=== PATIENT | female | born 1985 | race Two or more races ===

== ENCOUNTER 2016-12-26 08:19 | Emergency (ER) | payer MEDICAID ==
[~2016-12-26] VITALS: Ht 160 cm; Wt 145.1 kg
[~2016-12-26 08:19] MED LIST: ALBUTEROL SULF8.5 GM INH; AMOXICILLIN500 MG ORAL; AZITHROMYCIN250 MG ORAL; CLEOCIN150 MG PO; CYCLOBENZAPRINE10 MG ORAL; IBUPROFEN400 MG PO; IBUPROFEN600 MG ORAL; IBUPROFEN800 MG ORAL; MACROBID100 MG ORAL; NKM; OCUFLOX5 ML OP; PENICILLIN V P500 MG PO; PREDNISONE20 MG ORAL
[2016-12-26 09:01] VITALS: BP 138/95
[2016-12-26] MEDS ORDERED: Acetaminophen 500mg (ES) tab ORAL ONE (09:30)
--- NOTE | 2016-12-26 10:14 | Diagnostic Imaging Report ---
Indication: Chest pain Technique: One view of the chest Comparison: 05/22/2015 Findings: Heart size is upper limits of normal. Lungs and pleural spaces are clear. No significant change Impression: No acute process
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
[2016-12-26] MEDS ORDERED: IBUPROFEN600 MG ORAL (11:58)
[2016-12-26] MEDS ORDERED: ACETAMINOPHEN500 M3 ORAL (11:58)
[2016-12-26] MEDS ORDERED: CYCLOBENZAPRINE10 MG ORAL (11:58)
[2016-12-26 12:23] VITALS: BP 155/92
== END 2016-12-26 12:25 | disposition home or self-care (01) ==
LOC: EMR 08:55
DX: S13.4XXA Sprain of ligaments of cervical spine, initial encounter (principal); V89.2XXA Person injured in unspecified motor-vehicle accident, traffic, initial encounter; Y93.9 Activity, unspecified; Y99.9 Unspecified external cause status; R07.9 Chest pain, unspecified
CPT/HCPCS: 70450; 71010; 72125; 99284

== ENCOUNTER 2017-06-04 09:28 | Emergency (ER) | payer MEDICAID ==
[~2017-06-04] VITALS: Ht 160 cm; Wt 145.1 kg
[~2017-06-04 09:28] MED LIST changes: +ACETAMINOPHEN500 M3 ORAL
[2017-06-04 09:52] VITALS: BP 130/74
[2017-06-04 10:45] LABS: APPEARANCE,URINE SLIGHTLY CLOUDY; KETONES,URINE NEGATIVE (NEGATIVE); LEUKOCYTE ESTERASE ,URINE 3+ (NEGATIVE); NITRITE,URINE POSITIVE (NEGATIVE); PH,URINE 6 (4.5-8.0); PROTEIN,URINE NEGATIVE (NEGATIVE); UROBILINOGEN,URINE 1 MG/DL (0.0-1.0)
[2017-06-04] MEDS ORDERED: Bactrim DS (160mg/800mg) tab ORAL ONE (10:45)
[2017-06-04 10:58] LABS: BACTERIA,URINE MODERATE /HPF; RBC,URINE 0-2 /HPF (0 - 2); SQUAMOUS EPITHELIAL CELL,UR MODERATE /LPF (NONE/OCC)
--- NOTE | 2017-06-04 11:52 | Emergency Room Report ---
History of Present Illness General Chief Complaint: Skin Rash/Abscess Source: Patient Present Illness HPI Patient presents with R middle finger pain, swelling and drainage. No fevers. Has been worsening for 3 days. Tetanus UTD. Pain rated 3/10, worse when mashed , sharp and aching, not radiating. No numbness. 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 R handed. She is late for her period. No dysuria. No other somatic complaints. Asthma stable. No depression. Patient had abscess on her thigh in past needing I and D. Daughter here with UTI. Allergies: Coded Allergies: No Known Allergies (Unverified , 07/15/12) Patient History Past Medical History: see triage record Social History: Denies: smoking, drug use Social History Narrative with daughter - works at [employer] Reviewed Nursing Documentation: PMH: Agreed, PSxH: Agreed Nursing Documentation-PMH Past Medical History: No Stated History Review of Systems All Other Systems: negative except mentioned in HPI Physical Exam Vital Signs Date Time Temp Pulse Resp B/P (MAP) Pulse Ox O2 Delivery O2 Flow Rate FiO2 06/04/17 09:36 97.5 89 20 151/101 99 Room Air Sp02 EP Interpretation: reviewed, normal General Appearance: well appearing, no apparent distress, GCS 15 Head: normocephalic Eyes: bilateral eye normal inspection, bilateral eye PERRL ENT: moist mucus membranes Neck: supple Respiratory: lungs clear, normal breath sounds Cardiovascular #1: regular rate, rhythm Cardiovascular #2: 2+ radial (R) Gastrointestinal: normal inspection, normal bowel sounds, non tender, no mass, non-distended, overweight Musculoskeletal: back normal, gait/station normal, normal range of motion, swelling - R middle finger - radial side Neurologic: alert, oriented x3 Psychiatric: mood/affect normal Skin: warm/dry, other - paronychium R middle finger with erythema and swelling Procedures Incision and Drainage Incision and Drainage : Consent: Verbal Blade Size: 11 I & D Procedure: betadine prep, sterile drapes applied, gauze wick placed Wound Location: other - R middle finger Wound's Depth, Shape: superficial Wound Explored: contaminated - pus expressed after incision Irrigated w/ Saline (ccs): 20 Anesthesia: 1% Lidocaine - 1/2 digital block Volume Anesthetic (ccs): 3 Splint Applied?: No - tube gauze Patient Tolerated: Well Complications: None Medical Decision Making Diagnostic Impression: Primary Impression: Paronychia Additional Impression: UTI (urinary tract infection) Qualified Codes: N30.00 - Acute cystitis without hematuria ER Course Patient presents with paronychium of R middle finger and late for menses. Diagnosis is clinical and needs I and D. Also will check urine for . I and D with drain placement, tolerated well. UA preg neg, but pyuria. Bactrim begun both for finger and UTI. Patient stable for outpatient observation and treatment. Laboratory Tests Test 06/04/17 10:30 Urine Color Yellow Urine Appearance Slightly cloudy Urine pH 6 (4.5-8.0) Urine Specific [place] 1.015 (1.005-1.035) Urine Protein Negative (NEGATIVE) Urine Glucose (UA) Negative (NEGATIVE) Urine Ketones Negative (NEGATIVE) Urine Occult Blood 1+ (NEGATIVE) H Urine Nitrite Positive (NEGATIVE) H Urine Bilirubin Negative (NEGATIVE) Urine Urobilinogen 1 MG/DL (0.0-1.0) H Urine Leukocyte Esterase 3+ (NEGATIVE) H Urine RBC 0-2 /HPF (0 - 2) Urine WBC 5-10 /HPF (0 - 2) H Urine Squamous Epithelial Cells Moderate /LPF (NONE/OCC) H Urine Bacteria Moderate /HPF (NONE) H Urine HCG, Qualitative Negative Last Vital Signs Date Time Temp Pulse Resp B/P (MAP) Pulse Ox O2 Delivery O2 Flow Rate FiO2 06/04/17 12:47 98.2 78 8 130/74 99 Room Air Status: improved Disposition: HOME, SELF-CARE Condition: Improved Scripts Ibuprofen* (MOTRIN*) 600 Mg Tablet 600 MG ORAL Q6H Y for For Pain, #20 TAB Prov: Sean Joseph M.D. 06/04/17 Trimethoprim/Sulfamethoxazole 160/800* (BACTRIM DS TABLET*) 1 Each Tablet 1 TAB ORAL Q12H, #14 TAB 0 Refills Prov: Sean Joseph M.D. 06/04/17 Referrals: [facility],REFERRING (PCP) Sean Joseph M.D. Jun 04, 2017 11:52
[2017-06-04] MEDS ORDERED: BACTRIM DS TAB1 EAC1 ORAL (11:56)
[2017-06-04] MEDS ORDERED: IBUPROFEN600 MG ORAL (11:56)
[2017-06-04 12:47] VITALS: BP 130/74
== END 2017-06-04 12:48 | disposition home or self-care (01) ==
LOC: EMR 10:01
DX: L03.011 Cellulitis of right finger (principal); N39.0 Urinary tract infection, site not specified
CPT/HCPCS: 10060; 81003; 81025; 87086; 87181; 99283

== ENCOUNTER 2019-07-25 21:35 | Emergency (ER) | payer MEDICAID ==
[~2019-07-25] VITALS: Ht 160 cm; Wt 136.1 kg
[~2019-07-25 21:35] MED LIST changes: +BACTRIM DS TAB1 EAC1 ORAL
--- NOTE | 2019-07-25 22:17 | NUR ---
ED Nurse Note: pt triaged. currently in waiting room to be called.
--- NOTE | 2019-07-25 23:04 | NUR ---
ED Nurse Note: pt walked in to ed for flu like s/sx since 1700 today. pt also reports chills, cough , bodyache, and earache.
[2019-07-25 23:06] VITALS: BP 111/84
[2019-07-25] MEDS ORDERED: Acetaminophen 500mg (ES) tab ORAL ONE (23:30)
[2019-07-25] MEDS ORDERED: IBUPROFEN600 MG ORAL (23:30)
[2019-07-25] MEDS ORDERED: TAMIFLU75 MG ORAL (23:30)
--- NOTE | 2019-07-25 23:31 | Emergency Room Report ---
History of Present Illness General Chief Complaint: Flu Like Symptoms Source: Patient Present Illness [facility] This a 34-year-old female with no past medical history. She presents with complaint of fever and body pain. Onset was acute and occurred about 6 hours ago. She took Motrin for the pain. Has some cough and congestion and sore throat and ear pain. No sick contact. Denies any other complaint. Pain is 7 out of 10. Allergies: Coded Allergies: No Known Allergies (Unverified , 07/15/12) Patient History Past Medical History: see triage record, old chart reviewed Past Surgical History: none Pertinent Family History: none Social History: Denies: smoking Last Menstrual Period: 07/25/2019 Now: No Immunizations: other Reviewed Nursing Documentation: PMH: Agreed; PSxH: Agreed Nursing Documentation-PMH Past Medical History: No History, Except For Review of Systems Constitutional: Reports: chills, fever Eye: Denies: eye pain, blurred vision ENT: Reports: ear pain; Denies: nose congestion, throat swelling Respiratory: Reports: cough; Denies: shortness of breath Cardiovascular: Denies: chest pain, palpitations Gastrointestinal: Denies: abdominal pain, diarrhea, nausea, vomiting Musculoskeletal: Reports: back pain, joint pain Skin: Denies: rash Neurological: Denies: headache, numbness Endocrine: Denies: increased thirst, increased urine Hematologic/Lymphatic: Denies: easy bruising All Other Systems: negative except mentioned in HPI Physical Exam Vital Signs Date Time Temp Pulse Resp B/P (MAP) Pulse Ox O2 Delivery O2 Flow Rate FiO2 07/25/19 22:14 99.1 102 14 109/79 (89) 97 Room Air Vitals unremarkable Sp02 EP Interpretation: reviewed, normal General Appearance: well appearing, no apparent distress, alert, obese Head: normocephalic, atraumatic Eyes: bilateral eye PERRL, bilateral eye EOMI ENT: hearing grossly normal, normal pharynx Neck: full range of motion, supple, no meningismus Respiratory: chest non-tender, lungs clear, normal breath sounds Cardiovascular #1: regular rate, rhythm, no murmur Gastrointestinal: normal bowel sounds, non tender, no mass, no organomegaly, no bruit, non-distended Musculoskeletal: back normal, normal range of motion, gait/station normal Psychiatric: mood/affect normal Medical Decision Making Diagnostic Impression: Primary Impression: Influenza ER Course Patient presents with influenza-like symptoms. No evidence of any sepsis, meningitis, pneumonia or other serious bacterial infection. Will discharge home. Last Vital Signs Date Time Temp Pulse Resp B/P (MAP) Pulse Ox O2 Delivery O2 Flow Rate FiO2 07/25/19 23:06 99 15 Room Air 07/25/19 23:06 99.1 111/84 97 Status: improved Disposition: HOME, SELF-CARE Condition: Stable Scripts Oseltamivir Phosphate (Tamiflu) 75 Mg Capsule 75 MG ORAL TWICE A DAY, #10 CAP Prov: Pito Sanchez MD 07/25/19 Ibuprofen* (MOTRIN*) 600 Mg Tablet 600 MG ORAL THREE TIMES A DAY, #30 TAB 0 Refills Prov: Pito Sanchez MD 07/25/19 Referrals: [facility],REFERRING (PCP) Additional Instructions: Rest. Increase fluids. Follow-up with your doctor in 7 days. Return if worse. Pito Sanchez MD Jul 25, 2019 23:30
[2019-07-25 23:34] VITALS: BP 110/78
--- NOTE | 2019-07-25 23:34 | NUR ---
ER DISCHARGE NOTE: Patient is cleared to be discharged per ERMD, pt is aox4, on room air, with stable vital signs. pt was given dc and prescription instructions, pt was able to verbalize understanding, pt id band removed without complications. pt is able to ambulate with steady gait. pt took all belongings.
== END 2019-07-25 23:34 | disposition home or self-care (01) ==
LOC: EMR 22:56
DX: J11.1 Influenza due to unidentified influenza virus with other respiratory manifestations (principal)
CPT/HCPCS: 99282